=== PATIENT | female | born 1980 | race Caucasian/White ===

== ENCOUNTER 2019-05-17 19:30 | Emergency (ER) | payer BC, MEDICAID, OTHER ==
[~2019-05-17] VITALS: Ht 162.6 cm; Wt 72.6 kg
[~2019-05-17 19:30] MED LIST: SERT100T PO
[2019-05-17 19:59] VITALS: BP 127/75
--- NOTE | 2019-05-17 20:00 | NUR ---
Patient discharged to home in stable conditon. Written and verbal after care instructions given. Patient verbalizes understanding of instructions.
== END 2019-05-17 20:01 | disposition home or self-care (01) ==
LOC: ER 19:32
DX: S00.411A Abrasion of right ear, initial encounter (principal); H92.21 Otorrhagia, right ear; F17.210 Nicotine dependence, cigarettes, uncomplicated; F12.10 Cannabis abuse, uncomplicated; Z79.899 Other long term (current) drug therapy; X58.XXXA Exposure to other specified factors, initial encounter; Y93.89 Activity, other specified; Y92.89 Other specified places as the place of occurrence of the external cause; Y99.8 Other external cause status
CPT/HCPCS: A4663

== ENCOUNTER 2020-11-12 16:27 | Emergency (ER) | payer BC, MEDICAID ==
[~2020-11-12] VITALS: Ht 162.6 cm; Wt 68.0 kg
--- NOTE | 2020-11-12 17:05 | NUR ---
40 years old female c/o left toes pain swelling denies fall/trauma.
[2020-11-12] MEDS ORDERED: HYDROCODONE/APAP 10-325 MG TABLET PO ONE ×2 (18:00→18:45)
[2020-11-12] MEDS ORDERED: HYDROCODONE/APAP 10-325 MG TABLET ONE ×2 (18:19→18:53)
[2020-11-12 18:51] VITALS: BP 110/70
--- NOTE | 2020-11-12 18:52 | NUR ---
patient condition improved d/c home with instructions after care reviewed understood left er alert, ambulatory with spouse.
== END 2020-11-12 18:54 | disposition home or self-care (01) ==
LOC: ER 16:27
DX: S92.512A Displaced fracture of proximal phalanx of left lesser toe(s), initial encounter for closed fracture (principal); W22.8XXA Striking against or struck by other objects, initial encounter; Y92.89 Other specified places as the place of occurrence of the external cause
CPT/HCPCS: 73630; A4663

== ENCOUNTER 2021-08-09 23:30 | Emergency (ER) | payer MEDICAID ==
[~2021-08-09] VITALS: Ht 170.2 cm; Wt 59.0 kg
--- NOTE | 2021-08-09 23:45 | NUR ---
Patient walked into ER accompanied by . Patient c/o CP for 2 days and numbness on the left side of the face 10 mins PTO. Patient is A/O x4, no SOB, no distress noted. Patient is able to ambulate on steady gait
--- NOTE | 2021-08-09 23:56 | NUR ---
Dr. Smith at bedside for MSE.
[2021-08-10] MEDS ORDERED: MECLIZINE HCL 25 MG TABLET PO ONE (00:15)
[2021-08-10] MEDS ORDERED: MECLIZINE HCL 25 MG TABLET ONE (00:15)
[2021-08-10 00:52] LABS: CARBON DIOXIDE 30 mmol/L (21-32); CHLORIDE 102 mmol/L (98-107); CREATININE 0.8 mg/dL (0.6-1.3); GLUCOSE 134 mg/dL (74-106); POTASSIUM 3.3 mmol/L (3.5-5.1); UREA NITROGEN, BLOOD 11 mg/dL (7-18)
[2021-08-10 00:55] LABS: HEMATOCRIT 41.6 % (31.2-41.9); MEAN CORPUSCULAR HEMOGLOBIN 30.4 uug (24.7-32.8); MEAN CORPUSCULAR VOLUME 86.9 fL (75.5-95.3); PLATELET COUNT (AUTO) 201 K/uL (179-408)
[2021-08-10] MEDS ORDERED: POTASSIUM BICARBONATE/CIT AC 25 MEQ TABLET.EFF ONE (01:07)
[2021-08-10] MEDS ORDERED: OXYCODONE/APAP 5-325 MG TABLET PO ONE (01:15)
[2021-08-10] MEDS ORDERED: POTASSIUM BICARBONATE/CIT AC 25 MEQ TABLET.EFF PO ONE (01:15)
[2021-08-10] MEDS ORDERED: OXYCODONE/APAP 5-325 MG TABLET ONE (01:16)
[2021-08-10 01:18] LABS: *BILIRUBIN,URIN NEGATIVE (NEGATIVE); *BLOOD, URINE 1+ (NEGATIVE); *CLARITY,URINE CLEAR (CLEAR); *COLOR,URINE YELLOW (YELLOW); *KETONES,URINE NEGATIVE (NEGATIVE); *UROBILINOGEN,URINE 0.2 E.U./dl (NORMAL); LEUKOCYTE ESTERASE ,URINE TRACE (NEGATIVE); NITRITE, URINE NEGATIVE (NEGATIVE); PH,URINE 6.5 (5.0-8.0); UGLUCOSE NEGATIVE (NEGATIVE)
[2021-08-10 01:26] LABS: RBC,URINE 0-3 /HPF (0-3); WBC,URINE 0-3 /HPF (0-3)
[2021-08-10 01:27] LABS: *URINE HCG, QUAL NEGATIVE (NEGATIVE); BACTERIA,URINE FEW /HPF (NONE SEEN); SQUAMOUS EPITHELIAL CELL,UR MODERATE /HPF (NONE SEEN)
[2021-08-10] MEDS ORDERED: MECL-159 PO (02:33)
[2021-08-10] MEDS ORDERED: OXYC-128 PO (02:33)
[2021-08-10] MEDS ORDERED: CIPR7.5D LEFT EAR (02:33)
--- NOTE | 2021-08-10 02:40 | NUR ---
Patient discharged to home in stable condition. Written and verbal after care instructions given. Patient verbalizes understanding of instructions. Stressed follow up or return to ER for worsening s/s. Patient is A/O x4, able to ambulate on steady gait, no SOB, no distress noted. Patient is accompanied by .
[2021-08-10 02:48] VITALS: BP 123/78
== END 2021-08-10 02:40 | disposition home or self-care (01) ==
LOC: ER 23:35
DX: R42 Dizziness and giddiness (principal); H93.19 Tinnitus, unspecified ear; H60.92 Unspecified otitis externa, left ear; R00.2 Palpitations; E87.6 Hypokalemia
CPT/HCPCS: 36415; 71045; 83735; 84484; 84703; 85025; 85651; 93005; A4663; J8597

== ENCOUNTER 2022-01-04 19:29 | Emergency (ER) | payer MEDICAID, OTHER ==
[~2022-01-04 19:29] MED LIST changes: +CIPR7.5D LEFT EAR; +MECL-159 PO; +OXYC-128 PO
--- NOTE | 2022-01-04 20:19 | NUR ---
Patient was called to be triaged but was not present in the waiting room or outside of ER.
--- NOTE | 2022-01-04 20:40 | NUR ---
Patient was called to be triaged but was not present in the waiting room or outside of ER.
--- NOTE | 2022-01-04 21:00 | NUR ---
Patient was called to be traiged but was not present in the waiting room or outside of ER. PATIENT WAS NOT TRIAGED OR SEEN BY ERMD.
== END 2022-01-04 21:00 | disposition left against medical advice (07) ==
LOC: ER 19:31
DX: Z53.21 Procedure and treatment not carried out due to patient leaving prior to being seen by health care provider (principal)